=== PATIENT | male | born 1980 | race Caucasian/White ===

== ENCOUNTER 2025-02-11 12:02 | Emergency (ER) | payer MEDICAID ==
[~2025-02-11] VITALS: Ht 167.6 cm; Wt 61.2 kg
[2025-02-11] MEDS ORDERED: LIDOCAINE 5% (PATCH) 1 EA PATCH TP ONE (13:14)
[2025-02-11] MEDS ORDERED: KETOROLAC TROMETHAMINE 15 MG/ML VIAL ONE (13:14)
[2025-02-11] MEDS: KETOROLAC TROMETHAMINE 15 MG/ML VIAL IM ONE (13:23)
[2025-02-11] MEDS: LIDOCAINE 5% (PATCH) 1 EA PATCH TP ONE (13:23)
[2025-02-11] MEDS ORDERED: LIDO30AD10 TP (14:15)
[2025-02-11] MEDS ORDERED: IBUP-1490 PO (14:15)
[2025-02-11 14:29] VITALS: BP 121/74; TEMP 98.3; O2SAT 99
== END 2025-02-11 14:31 | disposition home or self-care (01) ==
LOC: ER 12:12
DX: R07.81 Pleurodynia (principal); F17.200 Nicotine dependence, unspecified, uncomplicated; F41.9 Anxiety disorder, unspecified; F32.A Depression, unspecified; Z88.5 Allergy status to narcotic agent
CPT/HCPCS: 99283; 96372; 71100; J1885